=== PATIENT | male | born 1970 | race Caucasian/White ===

== ENCOUNTER 2021-12-16 09:51 | Emergency (ER) | payer OTHER, SELFPAY ==
--- NOTE | ~2021-12-16 | XR_ITS ---
EXAMINATION: XR hand RT min 3V DATE: 12/16/2021 10:54 INDICATION: Cat bite the right hand 3 days prior. TECHNIQUE: Posteroanterior, oblique and lateral views of the right hand were obtained. COMPARISON: None. FINDINGS: Bone alignment is normal. No fracture. Mild osteoarthritis with mild nonuniform joint space narrowing at the triscaphe, first carpometacarpal, and procedure multiple metacarpophalangeal and interphalang eal joints. Soft tissue swelling over the dorsum of the right hand. No soft tissue gas or radiopaque foreign bodies. IMPRESSION: 1. Soft tissue swelling. No acute osseous abnormality or radiopaque foreign bodies. Reviewed, dictated and finalized at location A. IMPRESSION: 1. Soft tissue swelling. No acute osseous abnormality or radiopaque foreign bod ies.
[2021-12-16 10:10] VITALS: BP 142/87; PULSE 84; RESP 16; TEMP 37.3; O2SAT 94
--- NOTE | 2021-12-16 10:46 | ED.ANIMALBIT ---
HPI - Animal Bite General Chief Complaint: Animal Bite <Brenda Price PA-C - Last Filed: 12/16/21 18:17> Stated Complaint: cat bite 3 days ago <DALIA Cross Last Filed: 12/16/21 18:17> Time Seen by Provider: 12/16/21 10:04 <DALIA Cross Last Filed: 12/16/21 18:17> Source: patient <DALIA Cross Last Filed: 12/16/21 18:17> Mode of arrival: ambulatory <DALIA Cross Last Filed: 12/16/21 18:17> Limitations: no limitations <DALIA Cross Last Filed: 12/16/21 18:17> History of Present Illness HPI narrative: Patient is a 51-year-old male who presents to the ED with report of a cat bite to his right dorsal hand. Patient reports he was bitten and scratched by his cat 3 days ago. Sustained puncture wounds over dorsal second MCP region and several scratches over his dorsal hand. His cat vaccines are up-to-date. He states the pain and swelling have progressively worsened, prompting his presentation to the ED today. Patient states he felt somewhat feverish and chilled last night when going to bed, but denies any documented fever. Denies nausea, vomiting. Denies drainage from wounds. No streaking redness. Tetanus status unknown. <Brenda Price PA-C - Last Filed: 12/16/21 18:17> Related Data Allergies/Adverse Reactions: Allergies Allergy/AdvReac Type Severity Reaction Status Date / Time No Known Allergies Allergy Verified 12/16/21 10:08 <Brenda Price PA-C - Last Filed: 12/16/21 18:17> Review of Systems Review of Systems: CONSTITUTIONAL: Reports subjective fever, chills. GASTROINTESTINAL: Denies nausea, vomiting. SKIN: Reports cat bite to right dorsal hand with swelling. Denies drainage from wounds, streaking redness. MUSCULOSKELETAL: Reports pain to right dorsal hand. NEUROLOGIC: Denies numbness, tingling, or weakness. <DALIA Cross Last Filed: 12/16/21 18:17> All systems reviewed & are unremarkable except as noted in HPI and below <Brenda Price PA-C - Last Filed: 12/16/21 18:17> [facility] Past Medical History Medical History: Medical History Hypertension Prediabetes Sarcoidosis <Brenda Price PA-C - Last Filed: 12/16/21 18:17> Surgical History Surgical History: Surgical History (Updated 12/16/21 @ 10:52 by Brenda Price PA-C) History of cholecystectomy <Brenda Price PA-C - Last Filed: 12/16/21 18:17> Social History Social History: Social History (Updated 12/16/21 @ 10:52 by Brenda Price PA-C) Smoking status: Never smoker <Brenda Price PA-C - Last Filed: 12/16/21 18:17> Exam Narrative: GENERAL: Well appearing, well-nourished, non-toxic, in no acute distress. HEAD: Normocephalic, atraumatic. NECK: Supple. No adenopathy, no masses. RESPIRATORY: Airway patent, respirations nonlabored. Clear to auscultation bilaterally, no rales, rhonchi, wheezing. CARDIOVASCULAR: Regular rate and rhythm without murmurs, rubs, or gallops. Radial pulses 2+ and equal bilaterally. MUSCULOSKELETAL: Moves all extremities. Somewhat limited range of motion of flexion of right fingers due to swelling. Diffuse tenderness to R dorsal hand. Small puncture wounds to MCP joint of dorsal right hand second digit on radial side and in webspace between second and third digits. No active drainage. Swelling encompassing majority of dorsal right hand. Overlying erythema and mild warmth. Sensation intact. No crepitus appreciated. No tenderness along tendon sheaths. SKIN: Warm, dry, normal color. No rashes. NEURO: A&O X3. Speech clear. Cranial nerves II-XII grossly intact. Steady gait. No ataxic movements. PSYCHIATRIC: Appropriate mood and affect. Normal interaction. <Brenda Price PA-C - Last Filed: 12/16/21 18:17> Course UTILITY LOCATOR/PA Physician Supervision Patient seen and evaluated by me. He comes in after a cat bite from his own cat to his right hand.
[2021-12-16] MEDS: TETANUS,DIPHTHERIA,AC PERTUSSIS ADULT (0.5 ML) BOOSTRIX IM (10:56)
--- NOTE | 2021-12-16 11:03 | PC.NURSE ---
Patient report given to ISRRAEL Hsieh. All questions answered and care of patient transferred.
[2021-12-16 11:04] LABS: Basophils Absolute Auto 0.1 K/mm3 (0.0-0.1); Basophils Percent Auto 0.4 % (0.2-1.2); Eosinophils Absolute Auto 0.1 K/mm3 (0-0.3); Eosinophils Percent Auto 0.5 % (0-4.4); Hematocrit 46.7 % (42.0-52.0); Hemoglobin 15.2 g/dL (14.0-18.0); Immature Granulocyte Absolute 0.04 K/mm3 (0.00-0.031); Immature Granulocyte Percent A 0.3 % (0-0.5); Lymphocytes Absolute Auto 0.95 K/mm3 (0.9-3.2); Mean Corpuscular HGB Conc 32.5 g/dl (32-36); Mean Corpuscular Hemoglobin 28.4 pg (26-34); Mean Corpuscular Volume 87.3 fl (80-100); Mean Platelet Volume 10.1 fl (7.4-10.4); Monocytes Percent Auto 7.2 % (2.6-8.5); Neutrophils Absolute Auto 11.5 K/mm3 (1.3-6.7); Neutrophils Percent Auto 84.6 % (45.5-73.1); Platelet Count Result 179 k/mm3 (150-375); Red Blood Count 5.35 M/mm3 (4.6-6.20); Red Cell Distribution Width 13.6 % (11.5-14.5); White Blood Count 13.6 K/mm3 (4.5-10.0)
[2021-12-16 11:13] LABS: Alanine Aminotransferase 36 U/L (6-50); Albumin Level 4.4 g/dL (3.5-5.1); Alkaline Phosphatase 76 U/L (38-126); Anion Gap 8 mmol/L (8-16); Aspartate Amino Transferase 25 U/L (17-59); Bilirubin,Total 0.9 mg/dL (0.2-1.3); Blood Urea Nitrogen 15 mg/dL (9-20); Calcium 8.9 mg/dL (8.4-10.2); Carbon Dioxide 24 mmol/L (22-30); Chloride 105 mmol/L (98-107); Estimated CRCL calculation 89 ml/min; Estimated Glomerular Filt Rate > 60; Glucose 121 mg/dL (65-110); Potassium 4.2 mmol/L (3.4-5.0); Sodium 137 mmol/L (137-145)
== END 2021-12-16 11:51 | disposition home or self-care (01) ==
PROVIDERS: Physician Assistant; Emergency Provider Emergency Medicine; PCP Family Medicine
DX: S61.451A Open bite of right hand, initial encounter (principal); Z23 Encounter for immunization; I10 Essential (primary) hypertension; R73.03 Prediabetes; D86.9 Sarcoidosis, unspecified; W55.01XA Bitten by cat, initial encounter
CPT/HCPCS: 36415; 73130; 80053; 85025; 90471; 90715; 99283